=== PATIENT | female | born 1950 | race Caucasian/White ===

== ENCOUNTER 2020-09-16 13:23 | Emergency (ER) | payer MEDICARE, BC ==
[~2020-09-16 13:23] MED LIST: Iopamidol-370 76% 500 ML 1 ML ONE
[2020-09-16 15:02] LABS: #Lymphocytes 1.5 thou/uL (1.20-3.40); #Monocytes 0.4 thou/uL (0.11-0.59); #Neutrophils 3.9 thou/uL (1.40-6.50); %Basophils 0.7 % (0.0-1.0); %Eosinophils 0.4 % (0.0-10.0); %Lymphocytes 25.6 % (21.0-51.0); %Monocytes 6.7 % (0.0-10.0); %Neutrophils 66.7 % (42.0-75.0); Hemoglobin 14.1 g/dL (12.0-16.0); Mean Corpuscular HGB CONC 34.9 g/dL (32.0-36.0); Mean Corpuscular Hemoglobin 30.6 pg (27.0-31.0); Mean Corpuscular Volume 87.7 fL (78.0-98.0); Mean Platelet Volume 6.2 fL (7.4-10.4); Platelet Count 273 thou/uL (130-400); RBC Distribution Width 12.4 % (11.5-14.5); Red Blood Cell (RBC) Count 4.62 mill/uL (4.20-5.40); White Blood Cell (WBC) Count 5.8 thou/uL (4.8-10.8)
[2020-09-16 15:21] LABS: ALT (SGPT) 14 U/L (8-55); AST (SGOT) 16 U/L (5-34); Albumin 4.2 g/dL (3.4-4.8); Alkaline Phosphatase 73 U/L (40-110); Anion Gap 13 mmol/L (10-20); BUN (Urea Nitrogen) 11 mg/dL (9.8-20.1); Bilirubin, Total 0.8 mg/dL (0.2-1.2); CK (CPK) 48 U/L (29-168); Calc. Creatinine Clearance 0 mL/min (70-130); Calcium 9.9 mg/dL (7.8-10.44); Carbon Dioxide 27 mmol/L (23-31); Chloride 105 mmol/L (98-107); Estimated GFR-MDRD 81; Globulin 2.9 g/dL (2.4-3.5); Glucose 93 mg/dL (83-110); Lipase 9 U/L (8-78); Potassium 3.8 mmol/L (3.5-5.1); Protein, Total 7.1 g/dL (6.0-8.3); Sodium 141 mmol/L (136-145)
[2020-09-16 17:57] LABS: Bacteria/HPF None Seen HPF (None Seen); Bilirubin Negative (Negative); Blood, Urine Trace (Negative); Clarity Clear (Clear); Glucose, Urine (Dipstick) Normal (Negative); Ketone, Urine 10 mg/dL (Negative); Leukocyte Negative Leu/uL (Negative); Nitrite Negative (Negative); Protein, Urine (Dipstick) Negative (Neg-Trace); RBC/HPF 0-3 HPF (0-3); Squamous Epithelial None Seen HPF (0-3); Urobilinogen Normal mg/dL (Less than 2); WBC/HPF 0-3 HPF (0-3); pH, Urine 5.5 (5.0-9.0)
--- NOTE | 2020-09-16 21:38 | CT ---
CT ABDOMEN AND PELVIS WITH CONTRAST: 09/16/20 HISTORY: Epigastric and right upper quadrant pain. COMPARISON: None. FINDINGS: Lung bases are relatively clear. There is a small nodule in the left breast. Multiseptated cyst in the left lobe of the liver. A smaller septated cyst hepatic segment IVb measure s 1 cm. Debris within the gallbladder lumen. Spleen is unremarkable along with the pancreas. Adrenal glands are unremarkable. Small hypodensity albrecht perior pole left kidney measures greater than fluid attenuation not definitively a cyst. There is contrast in the right renal collecting system indicating this is a delayed exam. The aortoiliac contour is nonaneurysmal with moderate plaque. Extensive diverticular disease througho ut the sigmoid colon and descending colon without active current inflammation. The appendix is visual ized and is normal. No free intraperitoneal gas or fluid. No retroperitoneal periaortic adenopathy. Likely artifactual linear lucencies in the retroperitoneum between the SMA and SMV from increased noise on the exam. There is fusion of the L1-L2 vertebral bodi es and left sided posterior element with subsequent S-shaped scoliosis. IMPRESSION: 1. No acute inflammatory process abdomen or pelvis. 2. Multiple cysts of the left lobe of the liver. 3. Likely debris and possible cholelithiasis without cholecystitis. 4. Extensive diverticular disease of the sigmoid colon and descending colon without active curre nt inflammation. 5. Normal appendix. 6. Hypodensity superior pole left kidney measuring greater than fluid attenuation and 1.4 cm. N onemergent renal protocol CT or MRI is recommended. POS: HOME
== END 2020-09-16 20:40 | disposition home or self-care (01) ==
LOC: ERS 13:23
DX: K80.20 Calculus of gallbladder without cholecystitis without obstruction (principal); N20.0 Calculus of kidney; K76.89 Other specified diseases of liver; Z79.899 Other long term (current) drug therapy
CPT/HCPCS: 36415; 74177; 80053; 81003; 81015; 82550; 83690; 85025; Q9967

== ENCOUNTER 2020-09-23 11:39 | Outpatient (CLI) | payer MEDICARE, BC ==
[2020-09-23 14:37] LABS: #Basophils 0.1 10x3/uL (0.0-0.2); #Monocytes 0.4 10x3/uL (0.0-1.1); #Neutrophils 2.7 10x3/uL (1.5-8.4); %Eosinophils 0.6 % (0.0-6.0); %Lymphocytes 32.3 % (18.0-47.0); %Monocytes 8.4 % (0.0-10.0); %Neutrophils 57.5 % (40.0-75.0); Mean Corpuscular HGB CONC 34.4 G/DL (32.0-36.0); Mean Corpuscular Hemoglobin 29.3 PG (27.0-33.0); Mean Corpuscular Volume 85.1 fl (80.0-100.0); Platelet Count 257 10x3/uL (130-400); RBC Distribution Width 13.2 % (11.5-14.5); Red Blood Cell (RBC) Count 4.44 10x6/uL (3.90-5.20); White Blood Cell (WBC) Count 4.8 10x3/uL (4.5-11.0)
[2020-09-23 14:49] LABS: ALT (SGPT) 13 U/L (8-55); AST (SGOT) 15 U/L (5-34); Albumin 4.2 g/dL (3.4-4.8); Alkaline Phosphatase 62 U/L (40-110); Anion Gap 15 mmol/L (10-20); BUN (Urea Nitrogen) 8 mg/dL (9.8-20.1); Bilirubin, Direct 0.3 mg/dL (0.1-0.3); Bilirubin, Total 0.7 mg/dL (0.2-1.2); Calc. Creatinine Clearance 0 mL/min (70-130); Calcium 9.4 mg/dL (7.8-10.44); Carbon Dioxide 24 mmol/L (23-31); Chloride 105 mmol/L (98-107); Estimated GFR-MDRD 85; Globulin 2.2 g/dL (2.4-3.5); Glucose 92 mg/dL (83-110); Potassium 3.5 mmol/L (3.5-5.1); Protein, Total 6.4 g/dL (6.0-8.3); Sodium 140 mmol/L (136-145)
[2020-09-24 13:01] LABS: SARS-CoV-2 MS2 Positive; SARS-CoV-2 N Gene Negative; SARS-CoV-2 S Gene Negative; SARS-CoV-2 by NAA Not Detected (NotDetected); SARS-CoV-2 orf1ab Negative
--- NOTE | 2020-09-26 07:02 | EKG ---
Test Reason : PREOP Blood Pressure : / mmHG Vent. Rate : 089 BPM Atrial Rate : 089 BPM P-R Int : 134 ms QRS Dur : 082 ms QT Int : 374 ms P-R-T Axes : 067 031 056 degrees QTc Int : 455 ms Normal sinus rhythm Normal ECG Confirmed by CHUKC MATHUR, TANVIR ([id number]) on 09/26/2020 7:02:45 AM Referred By: Daniel GONZALEZ Confirmed By:TANVIR WOODS MD
== END 2020-09-23 11:40 | disposition home or self-care (01) ==
LOC: LABBT 11:39
PROVIDERS: ATTEND Surgery
DX: Z01.818 Encounter for other preprocedural examination (principal); Z20.828 Contact with and (suspected) exposure to other viral communicable diseases; K80.20 Calculus of gallbladder without cholecystitis without obstruction
CPT/HCPCS: 80053; 80076; 85025; U0003; 87635; 93005; 93010

== ENCOUNTER 2020-09-26 10:06 | Day surgery (SDC) | payer MEDICARE, BC ==
[2020-09-25 10:38] VITALS: BMI 28.3
[2020-09-26] MEDS ORDERED: Fentanyl 100 MCG/2 ML VIAL ONE ×3 (10:26→12:49)
[2020-09-26] MEDS ORDERED: Lidocaine 1% w/Epinephrine 1:100K 20 ML VIAL ONE (10:36)
[2020-09-26] MEDS ORDERED: Bupivacaine 0.25% HCL 30 ML VIAL ONE (10:36)
[2020-09-26] MEDS ORDERED: cefOXitin Sodium/Dextrose 2 GM/50 ML BAG ONE (10:41)
[2020-09-26] MEDS ORDERED: SUGAMMADEX SODIUM 200 MG/2 ML VIAL ONE (11:43)
--- NOTE | 2020-09-26 12:21 | OP ---
DATE OF PROCEDURE: 09/26/2020 PREOPERATIVE DIAGNOSIS: Symptomatic cholelithiasis. PROCEDURE PERFORMED: Laparoscopic cholecystectomy. INDICATIONS: A 70-year-old female who has been having episodic right upper quadrant pain. Ultrasound showed cholelithiasis. FINDINGS: Somewhat distended gallbladder. Small caliber cystic duct. DESCRIPTION OF PROCEDURE: After informed consent was obtained, the patient was taken to the operating room and given general endotracheal anesthesia, placed in supine position. Abdomen was prepped and draped in the usual fashion. Local anesthesia was infiltrated subcutaneously and deep, and a subumbilical incision was performed, subcu divided sharply. The fascia was grasped and 2 stay sutures of 0 Vicryl placed through each side of midline. Midline incised. Digital palpation revealed no local adhesions. A blunt 12-mm trocar inserted. Pneumoperitoneum was created to a pressure of 15 mmHg. 0 degree laparoscope inserted under direct vision. Three 5-mm ports were placed subcostally. The gallbladder grasped, advanced superiorly. The peritoneum dissected to expose the cystic duct, cystic artery, and critical view. The duct and artery were triply ligated with hemoclips and divided. The gallbladder removed from its fossa utilizing electrocautery, removed from the abdomen through the umbilical port. Hemostasis was assured. Trocars and retractors removed. Fascia closed with interrupted 0 Vicryl suture. The skin closed with interrupted 4-0 Rapide. Dermabond applied. The patient tolerated the procedure well, transferred to Recovery in good condition. Sponge and needle count verified correct x2. Job ID: [id number]
[2020-09-26] MEDS ORDERED: Lidocaine 1% PF 5 ML VIAL ONE (13:23)
[2020-09-26] MEDS ORDERED: Rocuronium Bromide 10 MG/ML (10ML VIAL) ONE (13:23)
[2020-09-26] MEDS ORDERED: Ketorolac Tromethamine 30 MG/ML VIAL ONE (13:23)
[2020-09-26] MEDS ORDERED: Ondansetron PF 4 MG/2 ML Vial ONE (13:23)
[2020-09-26] MEDS ORDERED: PROPOFOL 200 MG/20 ML VIAL ONE (13:23)
[2020-09-26] MEDS ORDERED: Ondansetron ODT 8 MG TAB ONE (14:42)
[2020-09-26] MEDS ORDERED: Ondansetron ODT 4 MG TAB ONE (14:43)
== END 2020-09-26 14:50 | disposition home or self-care (01) ==
LOC: SDC 10:06
PROVIDERS: ATTEND Surgery
PROC: 0FT44ZZ Resection of Gallbladder, Percutaneous Endoscopic Approach (ICD-10-PCS; principal; 2020-09-26)
DX: K80.10 Calculus of gallbladder with chronic cholecystitis without obstruction (principal); E78.00 Pure hypercholesterolemia, unspecified; I10 Essential (primary) hypertension; Z87.891 Personal history of nicotine dependence; Z79.899 Other long term (current) drug therapy; Z88.5 Allergy status to narcotic agent
CPT/HCPCS: 88304; J0694; J1885; J2405; J2704; J3010; Q0162; S0020